=== PATIENT | female | born 1975 | race Caucasian/White ===

== ENCOUNTER → 2025-02-10 | Outpatient (CLI) | payer MEDICARE, SELFPAY ==
[2025-02-10 22:49] LABS: Absolute Lymphocyte Count 1.44 X10^3/uL (0.83-4.51); Absolute Neutrophil Count 3.5 X10^3/uL (2.0-7.7); Basophil# 0.05 X10^3/uL; Basophil% 0.9 % (0-1); Eosinophil# 0.12 X10^3/uL; Eosinophils% 2.2 % (0-5); Hematocrit 37.7 % (37-47); Hemoglobin 12.6 g/dL (12.0-15.0); Lymphocyte # 1.44 X10^3/ul (0.83-4.51); Lymphocyte % 26.3 % (19-41); Mean Corp Hgb Conc 33.4 g/dL (32-36); Mean Corpuscular Hgb 31.7 pg (27.0-32.0); Mean Corpuscular Volume 94.7 fL (81-99); Mean Platelet Vol. 10.7 fl (6.2-12.0); Monocyte# 0.36 X10^3/uL; Monocyte% 6.6 % (0-10); NRBC Flagged by Analyzer 0 % (0-5); Neutrophil # 3.49 X10^3/uL (2.7-7.7); Neutrophil % 63.8 % (47-70); Platelet Count 261 K/mm3 (150-450); RBC Distribution Width SD 45.5 fl (35.1-43.9); Red Blood Count 3.98 M/mm3 (4.2-5.4); White Blood Count 5.5 K/mm3 (4.4-11.0)
[2025-02-10 23:15] LABS: ALB/GLOB Ratio 2.1 RATIO (0.9-2.4); AST(SGOT) 23 U/L (<=31); Alanine Aminotransfer ALT/SGPT 14 U/L (<=34); Albumin, Serum 4.6 g/dL (3.5-5.0); Alkaline Phosphatase 67 U/L (35-104); Anion Gap 10 (5-15); BUN 11 mg/dL (4-19); BUN/Creat Ratio 10.9 RATIO (10-20); Calcium,Total 9.6 mg/dL (7.6-11.0); Carbon Dioxide 25.8 mmol/L (21.0-32.0); Chloride 103 mmol/L (98-108); Cholesterol 301 mg/dL (<=200); Creatinine, Serum 0.99 mg/dL (0.70-1.20); EST Glomerular Filtration Rate 69 (>60); Globulin 2.2 g/dL (2.2-4.2); Glucose 82 mg/dL (70-99); High Density Lipoprotein 101 mg/dL; Low Density Lipoprotein Calc. 190 mg/dL; Potassium 3.7 mmol/L (3.3-5.1); Protein, Total 6.8 g/dL (5.9-8.4); Sodium Level 139 mmol/L (133-145); Triglycerides 51 mg/dL; Very Low Density Lipoprotein 10 mg/dL (5-40); cholesterol:hdl ratio screen 2.98
[2025-02-11 01:11] LABS: Vitamin B12 698 pg/mL (180-914)
== END | disposition home or self-care (01) ==
PROVIDERS: Referring Provider Nurse Practitioner; Visit Provider Nurse Practitioner
DX: Z00.00 Encounter for general adult medical examination without abnormal findings (principal); K65.8 Other peritonitis; D64.9 Anemia, unspecified; E78.00 Pure hypercholesterolemia, unspecified
CPT/HCPCS: 80053; 80061; 82607; 82652; 84443; 85025

== ENCOUNTER → 2025-04-30 | Outpatient (CLI) | payer MEDICARE, SELFPAY ==
--- OUTSIDE RECORDS SUMMARY | 2025-04-30 23:12 | XMS RPT_ITS | CCD ---
Author Organization [facility] Care Team Providers Care Spraying Machine Operator Name Role Phone HAYDEN BISHOP (DO) Unavailable UnavaRIGO Ibrahim (OD) Unavailable UnavailMargaret Estrella Unavailable Unavailable Unavailable Layo PRODUCT SUPPORT MANAGER-C, Christopher Attending Provider Layo PRODUCT SUPPORT MANAGER-C, Christopher Referring Provider Christopher Bustos NP Referring Unavailable Christopher Bustos NP Attending Unavailable Delmy Josue MD Primary Care Provider DELMY JOSUE Referring Unavailable DELMY JOSUE Primary Care Unavailable CHRISTOPHER BUSTOS Primary Care Unavailable Medications Current Medications Medication Drug Class(es) Dates Sig (Normalized) Sig (Original) amphetamine aspartate 5 mg / amphetamine sulfate 5 mg / dextroamphetamine saccharate 5 mg / dextroamphetamine sulfate 5 mg oral tablet (1 source) Central Nervous System Stimulant take 1 tablet by mouth once daily dextroamphetamine-a mphetamine (ADDERALL) 20 mg tablet Take 20 mg by mouth once daily. Active CA CARB & GLUC/MAG OX & GLUC (CALCIUM MAGNESIUM ORAL) (1 source) take 1400 mg by mouth once daily CA CARB & GLUC/MAG OX & GLUC (CALCIUM MAGNESIUM ORAL) Take 1,400 mg by mouth once daily. Active calcium ascorbate 500 mg oral tablet (2 sources) Start: take 1 tablet by mouth twice daily Ascorbate Calcium (Vitamin C) 500 mg tablet Active 500 mg PO TWICE A DAY February 11, 2025 12:00am CHLOREL/CHLOROPH/D3/B2 /FA/IRON (CHLORELLA CAPS ORAL) (1 source) take 1 capsule by mouth once daily CHLOREL/CHLOROPH/D3 /B2/FA/IRON (CHLORELLA CAPS ORAL) Take 3,000 Units by mouth once daily. Active cholecalciferol 0.125 mg oral capsule (2 sources) Vitamin D Start: 5 take 1 capsule by mouth once daily Cholecalciferol (Vitamin D3) 125 mcg (5,000 unit) capsule Active 125 ug PO daily February 11, 2025 12:00am dexamethasone 6 mg oral tablet (1 source) Corticosteroid Start: End: 1 take 1 tablet by mouth once daily Dexamethasone 6 MG Oral Tablet TAKE 1 TABLET DAILY. Quantity: 10 Refills: 0 Ordered: 02-Jun-2021 Mario Quintanilla DO Start : 02-Jun-2021 End : 12-Jun-2021 Active doxycycline hyclate 100 mg oral capsule (1 source) Tetracycline-class Drug Start: End: 1 take 1 capsule by mouth twice daily Doxycycline Hyclate 100 MG Oral Capsule TAKE 1 CAPSULE TWICE DAILY UNTIL GONE. Quantity: 10 Refills: 0 Ordered: 02-Jun-2021 Mario Quintanilla DO Start : 02-Jun-2021 End : 07-Jun-2021 Active DULoxetine 60 mg delayed release oral capsule (1 source) Serotonin and Norepinephrine Reuptake Inhibitor take 1 capsule by mouth once daily DULoxetine (CYMBALTA) 60 mg capsule Take 60 mg by mouth once daily. Active ERGOCALCIFEROL, VITAMIN D2, (VITAMIN D2 ORAL) (1 source) take 2000 [IU] by mouth once daily ERGOCALCIFEROL, VITAMIN D2, (VITAMIN D2 ORAL) Take 2,000 Units by mouth once daily. Active gabapentin 300 mg oral capsule (3 sources) Anti-epileptic Agent Start: 5 take 1 capsule by mouth at bedtime Gabapentin 300 mg capsule Active 300 mg PO AT BEDTIME February 11, 2025 12:00am take 1-2 capsules by mouth once daily at bedtime gabapentin (NEURONTIN) 100 mg capsule Ta ke 100 mg by mouth daily at bedtime. Take 1-2 capsules by mouth at bedtime Active INTERFERON BETA-1B (BETASERON SUBCUTANEOUS) (1 source) inject 0.3 mg by subcutaneous injection every other day INTERFERON BETA-1B (BETASERON SUBCUTANEOUS) Inject 0.3 mg subcutaneously every other day. Active levothyroxine sodium 0.088 mg oral tablet (3 sources) l-Thyroxi ne Start: take 1 tablet by mouth once daily Levothyroxine (Levoxyl) 88 mcg tablet Active 88 ug PO daily March 31, 2025 12:00am Start: 08-01-2019 take 1 tablet by sruthi th once daily Levothyroxine Sodium 50 MCG Oral Tablet TAKE 1 TABLET DAILY. Quantity: 30 Refills: 1 Ordered: 01-Aug-2019 Enzo Choi MD Start : 01-Aug-2019 Active Magnesium (2 sources) Start: 02-11-2025 take 1 tablet by mouth once daily Magnesium 250 mg tablet Active 250 mg PO daily February 11, 2025 12:00am mecobalamin 1 mg sublingual tablet (2 sources) Start: 02-11-2025 Mecobalamin (Vitamin B12) 1,000 mcg tablet,disintegrating Active 1000 ug SL daily February 11, 2025 12:00am place tablet under tongue and allow to dissolve for at least30 secs before swallowing 24 hr methylphenidate hydrochloride 54 mg extended release oral tablet (2 sources) Central Nervous System Stimulant Start: 02-11-2025 take 1 tablet by mouth once daily in the morning, then take 1 tablet by mouth every twenty-four hours Methylphenidate Hcl (Concerta) 54 mg tablet extended release 24hr Active 54 mg PO EVERY MORNING February 11, 2025 12:00am Ocrelizumab-Hyaluroni dase-Ocsq (2 sources) Start: 02-11-2025 Ocrelizumab-Hyaluroni dase-Ocsq (Ocrevus Zunovo) 920 mg-23,000 unit/23 mL solution Active 23 mL SC every 6 months February 11, 2025 12:00am On Hold: None into the abdomen over approximately 10 minutes Start: 02-11-2025 Ocrelizumab-Hy aluronidase-Ocsq (Ocrevus Zunovo) 920 mg-23,000 unit/23 mL solution Active 23 mL SC every 6 months February 11, 2025 12:00am into the abdomen over approximately 10 minutes Turmeric extract (1 source) take 2 capsules by mouth once daily TURMERIC (CURCUMIN MISC) Take 625 mg by mouth once daily. Take 2 capsules by mouth once daily Active zinc acetate 50 mg oral capsule (2 sources) Start: 02-11-2025 take 1 capsule by mouth once daily Zinc Acetate (Galzin) 50 mg (zinc) capsule Active 50 mg PO daily February 11, 2025 12:00am Completed/Discontinued Medications Medication Drug Class(es) Dates Sig (Normalized) Sig (Original) [id number] actuat albuterol 0.09 mg/actuat metered dose inhaler (1 source) beta2-Adrenergic Agonist Start: 06-02-2021 Albuterol Sulfate HFA 108 (90 Base) MCG/ACT Inhalation Aerosol Solution 2 puffs via spacer device every 4-6 hours as needed. Please use spacer device. 1 puff take 5-6 easy breaths. Rest 1 minute repeat. Quantity: 1 Refills: 1 Ordered: 02-Jun-2021 Mario Quintanilla DO Start : 02-Jun-2021 Active Spacer for Metered Dose Inhaler (1 source) Start: 06-02-2021 Spacer for Metered Dose Inhaler Please dispense spacer device with MDI. Please instruct patient in use of MDI with spacer device Quantity: 1 Refills: 0 Ordered: 02-Jun-2021 Mario Quintanilla DO Start : 02-Jun-2021 Active Problems Problem Classification Problem Date Documented Date Episodic/Chronic Asthma (1 source) Exacerbation of asthma; Translations: [Asthma, unspecified type, with (acute) exacerbation] Chronic Deficiency and other anemia (2 sources) Anemia; Translations: [Anemia, unspecified] 02-10-2025 Episodic Disorders of lipid metabolism (2 sources) Hypercholesterolemia; Translations: [Pure hypercholesterolemia, unspecified] 02-10-2025 Chronic Headache; including migraine (1 source) Headache; Translations: [Headache] Episodic Immunizations and screening for infectious disease (1 source) Suspected disease caused by 2019-nCoV; Translations: [Contact with or exposure to other viral diseases] Episodic Multiple sclerosis (4 sources) Multiple sclerosis; Translations: [Multiple sclerosis] Onset: 12-01-2011 02-11-2025 Chronic Other lower respiratory disease (2 sources) Cough; Translations: [Cough] Episodic Other upper respiratory disease (1 source) Nasal congestion; Translations: [Other disease of nasal cavity and sinuses] Episodic Thyroid disorders (3 sources) 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 Routine follow-up TECHNIQUE: Brain MRI with demyelinating disease protocol with and without IV gadolinium. MQ: [id number] Contrast: 15ml mL Dotarem IV COMPARISON: MRI performed 11/19/2011 . Outside report dated 09/11/2018 RESULT: MR BRAIN: Parenchymal Findings: There are multiple foci of hyperintensity on FLAIR and T2 within the white matter, compatible with the clinical diagnosis of multiple sclerosis. Fairly extensive white matter changes involving both cerebral hemispheres, involving juxtacortical, right ventricular and deep white matter both hemispheres as well as the posterior fossa are present. There is no definite enhancement. A small focus of questionable enhancement in the right tate radiata (7:17) does not appear to correlate with a white matter lesion and is likely artifactual. New T2 Lesions: Greater than three. Site(s) of New/Larger T2 Lesion(s): When compared with the study performed 11/19/2011, there are extensive new areas of FLAIR signal change involving both hemispheres. Interval Improvement: A focal area of increased FLAIR signal in the right lateral cerebellar hemisphere appears improved compared with the previous study New Enhancing Lesions: None T2 [place] of Disease: Moderate. Parenchymal Volume Loss: Moderate. Other Significant Findings: None. *Note:? The definition of new T2 Lesions includes both new and enlarging plaques on T2-weighted FLAIR images (new lesions greater than or equal to 5mm3 or an increase in diameter of an existing lesion by greater than or equal to 2mm). IMPRESSION: 1. Multiple intracranial white matter lesions compatible with multiple sclerosis. Greater than three new T2 lesions and no new enhancing lesions. Moderate parenchymal volume loss. Note that the comparison is made to the most recent study available, which is dated 11/19/2011. The patient has had multiple MRIs in the interval from the study, and if those are made available, an addendum can be made to this report with a direct comparison. * * * * * * * * ADDENDUM #1 * * * * * * * * A previous comparison MRI performed 07/16/2016 has been uploaded. Compared with that study, there is significant progression of white matter changes, with more confluent FLAIR signal change around the trigones of both lateral ventricles, and more extensive white matter change in both cerebral hemispheres, with some volume loss. Farm Management Teacher: PSCB Transcribe Date/Time: Mar 24 2025 2:06P Dictated by : LAKEISHA ATKINSON MD This examination was interpreted and the report reviewed and electronically signed by: LAKEISHA ATKINSON MD on Mar 10 2025 2:39PM EST This document has been addended by: LAKEISHA ATKINSON MD on Mar 24 2025 2:09PM EST [id number] Normal [facility] Vitamin D 1,25-Dihydroxyon 0 02-14-2025 VIT D 1,25 DIHY 70.6 pg/mL Normal 24.8-81.5 [facility] Comment on above: Result Comment: Perf ormed at: - [facility] [id number] Tablet Coater: Jermaine Hwang MD, Phone: [phone] Performed By: #### L 3300.0960, L503.0106, L500.4050, L100.0100, L501.9520, L500.4100 #### [facility] [address] [facility] [place], [address] Thyroid Stim Hormone (TSH)on 02-11-2025 TSH 166.000 uIU/mL High 0.300-4.200 [facility] Comment on above: Performed By: #### L 3300.0960, L503.0106, L500.4050, L100.0100, L501.9520, L500.4100 #### [facility] [address] [place], [address] Vitamin B12on 02-11-2025 Cobalamin (Vitamin B12) [Mass/Vol] 698 pg/mL Normal 180-914 [facility] Comment on above: Performed By: #### L 3300.0960, L503.0106, L500.4050, L100.0100, L501.9520, L500.4100 #### [facility] [address] [place], [address] Absolute lymphocyte countOrd ered By: Christopher Bustos on 02-10-2025 Lymphocytes Auto (Unsp spec) [#/Vol] 1.44 10*3/uL 0.83-4.51 [facility] Absolute neutrophil countOrd ered By: Christopher Bustos on 02-10-2025 Neutrophils (Bld) [#/Vol] 3.5 10*3/uL 2.0-7.7 [facility] Anion gap in Serum or Plasma Ordered By: Christopher Bustos on 02-10-2025 Anion gap [Moles/Vol] 10 mmol/L 5-15 [facility] Automated lymphocyte count a s percentage of total leukocytesOrdered By: Christopher Bustos on 02-10-2025 Lymphocytes/100 WBC Auto (Unsp spec) 26.3 % 19-41 [facility] BUN/creatinine ratioOrdered By: Christopher Bustos on 02-10-2025 Urea nitrogen/Creatinine [Mass ratio] 10.9 mg/mg 10-20 [facility] Basophil percentageOrdered B y: Christopher Bustos on 02-10-2025 Basophils/100 WBC (Bld) 0.9 % 0-1 [facility] Bilirubin, totalOrdered By: Christophre Bustos on 02-10-2025 Bilirubin [Mass/Vol] 0.30 mg/dL 0.00-1.30 [facility] CBC W/Diff, Automatedon Absolute Lymph 1.44 X10 3/uL Normal 0.83-4.51 [facility] Comment on above: Performed By: #### L 3300.0960, L503.0106, L500.4050, L100.0100, L501.9520, L500.4100 #### [facility] [address] [place], [address] Absolute Neut 3.5 X10 3/uL Normal 2.0-7.7 [facility] Comment on above: Performed By: #### L 3300.0960, L503.0106, L500.4050, L100.0100, L501.9520, L500.4100 #### [facility] [address] [place], [address] Basophils/100 WBC (Bld) 0.9 % Normal 0-1 [facility] Comment on above: Performed By: #### L 3300.0960, L503.0106, L500.4050, L100.0100, L501.9520, L500.4100 #### [facility] [address] [place], [address] Eosinophils/100 WBC (Bld) 2.2 % Normal 0-5 [facility] Comment on above: Performed By: #### L 3300.0960, L503.0106, L500.4050, L100.0100, L501.9520, L500.4100 #### [facility] [address] [place], [address] Erythrocyte distribution width (RBC) [Ratio] 13.0 % Normal 11.6-14.6 [facility] Comment on above: Performed By: #### L 3300.0960, L503.0106, L500.4050, L100.0100, L501.9520, L500.4100 #### [facility] [address] [place], [address] Hematocrit (Bld) [Volume fraction] 37.7 % Normal 37-47 [facility] Comment on above: Performed By: #### L 3300.0960, L503.0106, L500.4050, L100.0100, L501.9520, L500.4100 #### [facility] [address] [place], [address] Hemoglobin (Bld) [Mass/Vol] 12.6 g/dL Normal 12.0-15.0 [facility] Comment on above: Performed By: #### L 3300.0960, L503.0106, L500.4050, L100.0100, L501.9520, L500.4100 #### [facility] [address] [place], [address] IG% 0.200 Normal 0.0-0.9 [facility] Comment on above: Result Comment: IG% - Immature Granulocytes (promyelocytes, myelocytes and metamyelocytes) > 1% indicates that a LEFT SHIFT is Present. Performed By: #### L 3300.0960, L503.0106, L500.4050, L100.0100, L501.9520, L500.4100 #### [facility] [address] [place], [address] Lymphocytes/100 WBC (Bld) 26.3 % Normal 19-41 [facility] Comment on above: Performed By: #### L 3300.0960, L503.0106, L500.4050, L100.0100, L501.9520, L500.4100 #### [facility] [address] [place], [address] MCH (RBC) [Entitic mass] 31.7 pg Normal 27.0-32.0 [facility] Comment on above: Performed By: #### L 3300.0960, L503.0106, L500.4050, L100.0100, L501.9520, L500.4100 #### [facility] [address] [place], [address] MCHC (RBC) [Mass/Vol] 33.4 g/dL Normal 32-36 [facility] Comment on above: Performed By: #### L 3300.0960, L503.0106, L500.4050, L100.0100, L501.9520, L500.4100 #### [facility] [address] [place], [address] MCV (RBC) [Entitic vol] 94.7 fL Normal 81-99 [facility] Comment on above: Performed By: #### L 3300.0960, L503.0106, L500.4050, L100.0100, L501.9520, L500.4100 #### [facility] [address] [place], [address] Monocytes/100 WBC (Bld) 6.6 % Normal 0-10 [facility] Comment on above: Performed By: #### L 3300.0960, L503.0106, L500.4050, L100.0100, L501.9520, L500.4100 #### [facility] [address] [place], [address] Neutrophils/100 WBC (Bld) 63.8 % Normal 47-70 [facility] Comment on above: Performed By: #### L 3300.0960, L503.0106, L500.4050, L100.0100, L501.9520, L500.4100 #### [facility] [address] [place], [address] Nucleated RBC (Bld) [#/Vol] 0 10*3/uL Normal 0-5 [facility] Comment on above: Performed By: #### L 3300.0960, L503.0106, L500.4050, L100.0100, L501.9520, L500.4100 #### [facility] [address] [place], [address] Platelet mean volume (Bld) [Entitic vol] 10.7 fL Normal 6.2-12.0 [facility] Comment on above: Performed By: #### L 3300.0960, L503.0106, L500.4050, L100.0100, L501.9520, L500.4100 #### [facility] [address] [place], [address] Platelets (Bld) [#/Vol] 261 10*3/uL Normal 150-450 [facility] Comment on above: Performed By: #### L 3300.0960, L503.0106, L500.4050, L100.0100, L501.9520, L500.4100 #### [facility] [address] [place], [address] RBC (Bld) [#/Vol] 3.98 10*6/uL Low 4.2-5.4 [facility] Comment on above: Performed By: #### L 3300.0960, L503.0106, L500.4050, L100.0100, L501.9520, L500.4100 #### [facility] [address] [place], [address] RDW SD 45.5 fl High 35.1-43.9 [facility] Comment on above: Performed By: #### L 3300.0960, L503.0106, L500.4050, L100.0100, L501.9520, L500.4100 #### [facility] [address] [place], [address] WBC (Bld) [#/Vol] 5.5 10*3/uL Normal 4.4-11.0 [facility] Comment on above: Performed By: #### L 3300.0960, L503.0106, L500.4050, L100.0100, L501.9520, L500.4100 #### [facility] [address] [place], [address] Calculated very low density lipoprotein (VLDL) cholesterol measurementOrdered By: Christopher Bustos on 02-10-2025 Calculated very low density lipoprotein (VLDL) cholesterol measurement 10 mg/dL 5-40 [facility] Carbon dioxide, total [Moles /volume] in Central venous bloodOrdered By: Christopher Bustos on 02-10-2025 CO2 [Moles/Vol] 25.8 mmol/L 21.0-32.0 [facility] Chloride assayOrdered By: Do ra Bustos on 02-10-2025 Chloride [Moles/Vol] 103 mmol/L 98-108 [facility] Comprehensive Metabolic Prof ilon 02-10-2025 Albumin [Mass/Vol] 4.6 g/dL Normal 3.5-5.0 [facility] Comment on above: Performed By: #### L 3300.0960, L503.0106, L500.4050, L100.0100, L501.9520, L500.4100 #### [facility] [address] [place], [address] Albumin/Globulin [Mass ratio] 2.1 {ratio} Normal 0.9-2.4 [facility] Comment on above: Performed By: #### L 3300.0960, L503.0106, L500.4050, L100.0100, L501.9520, L500.4100 #### [facility] [address] [place], [address] ALK PHOS 67 U/L Normal 35-104 [facility] Comment on above: Performed By: #### L 3300.0960, L503.0106, L500.4050, L100.0100, L501.9520, L500.4100 #### [facility] [address] [place], [address] ALT [Catalytic activity/Vol] 14 U/L Normal <=34 [facility] Comment on above: Performed By: #### L 3300.0960, L503.0106, L500.4050, L100.0100, L501.9520, L500.4100 #### [facility] [address] [place], [address] AST [Catalytic activity/Vol] 23 U/L Normal <=31 [facility] Comment on above: Performed By: #### L 3300.0960, L503.0106, L500.4050, L100.0100, L501.9520, L500.4100 #### [facility] [address] [place], [address] Bilirubin [Mass/Vol] 0.30 mg/dL Normal 0.00-1.30 [facility] Comment on above: Performed By: #### L 3300.0960, L503.0106, L500.4050, L100.0100, L501.9520, L500.4100 #### [facility] [address] [place], [address] BUN/CRE 10.9 RATIO Normal 10-20 [facility] Comment on above: Performed By: #### L 3300.0960, L503.0106, L500.4050, L100.0100, L501.9520, L500.4100 #### [facility] [address] [place], [address] Calcium [Mass/Vol] 9.6 mg/dL Normal 7.6-11.0 [facility] Comment on above: Performed By: #### L 3300.0960, L503.0106, L500.4050, L100.0100, L501.9520, L500.4100 #### [facility] [address] [place], [address] Chloride [Moles/Vol] 103 mmol/L Normal 98-108 [facility] Comment on above: Performed By: #### L 3300.0960, L503.0106, L500.4050, L100.0100, L501.9520, L500.4100 #### [facility] [address] [place], [address] CO2 [Moles/Vol] 25.8 mmol/L Normal 21.0-32.0 [facility] Comment on above: Performed By: #### L 3300.0960, L503.0106, L500.4050, L100.0100, L501.9520, L500.4100 #### [facility] [address] [place], [address] Creatinine [Mass/Vol] 0.99 mg/dL Normal 0.70-1.20 [facility] Comment on above: Performed By: #### L 3300.0960, L503.0106, L500.4050, L100.0100, L501.9520, L500.4100 #### [facility] [address] [place], [address] GAP 10 Normal 5-15 [facility] Comment on above: Performed By: #### L 3300.0960, L503.0106, L500.4050, L100.0100, L501.9520, L500.4100 #### [facility] [address] [place], [address] GFR/1.73 sq M.predicted among non-blacks MDRD (S/P/Bld) [Vol rate/Area] 69 mL/min/{1.73_m2} Normal >60 [facility] Comment on above: Result Comment: mL/m in/1.73m2 CKD-EPI Creatinine Equation (2020) Performed By: #### L 3300.0960, L503.0106, L500.4050, L100.0100, L501.9520, L500.4100 #### [facility] [address] [place], [address] Globulin (S) [Mass/Vol] 2.2 g/dL Normal 2.2-4.2 [facility] Comment on above: Performed By: #### L 3300.0960, L503.0106, L500.4050, L100.0100, L501.9520, L500.4100 #### [facility] [address] [place], [address] Glucose [Mass/Vol] 82 mg/dL Normal 70-99 [facility] Comment on above: Performed By: #### L 3300.0960, L503.0106, L500.4050, L100.0100, L501.9520, L500.4100 #### [facility] [address] [place], [address] Potassium [Moles/Vol] 3.7 mmol/L Normal 3.3-5.1 [facility] Comment on above: Performed By: #### L 3300.0960, L503.0106, L500.4050, L100.0100, L501.9520, L500.4100 #### [facility] [address] [place], [address] Sodium [Moles/Vol] 139 mmol/L Normal 133-145 [facility] Comment on above: Performed By: #### L 3300.0960, L503.0106, L500.4050, L100.0100, L501.9520, L500.4100 #### [facility] [address] [place], [address] T PROT 6.8 g/dL Normal 5.9-8.4 [facility] Comment on above: Performed By: #### L 3300.0960, L503.0106, L500.4050, L100.0100, L501.9520, L500.4100 #### [facility] [address] [place], [address] Urea nitrogen [Mass/Vol] 11 mg/dL Normal 4-19 [facility] Comment on above: Performed By: #### L 3300.0960, L503.0106, L500.4050, L100.0100, L501.9520, L500.4100 #### [facility] [address] [place], [place], [id number] Eosinophil percentageOrdered By: Christopher Bustos on 02-10-2025 Eosinophils/100 WBC (Bld) 2.2 % 0-5 [facility] Erythrocyte distribution wid th ratioOrdered By: Christopher Bustos on 02-10-2025 Erythrocyte distribution width (RBC) [Ratio] 13.0 % 11.6-14.6 [facility] Erythrocyte distribution wid th standard deviationOrdered By: Christopher Bustos on 02-10-2025 Erythrocyte distribution width (RBC) [Ratio] 45.5 fl High 35.1-43.9 [facility] Glomerular filtration rate ( GFR) estimation/1.73 sq m using serum, plasma, or whole bOrdered By: Christopher Bustos on 02-10-2025 GFR/1.73 sq M.predicted among non-blacks MDRD (S/P/Bld) [Vol rate/Area] 69 mL/min/{1.73_m2} >60 [facility] Comment on above: mL/min/1.73m2 CKD-EP I Creatinine Equation (2020) Hematocrit Auto (Bld) [Volum e fraction]Ordered By: Christopher Bustos on 02-10-2025 Hematocrit (Bld) [Volume fraction] 37.7 % 37-47 [facility] Hemoglobin measurementOrdere d By: Christopher Bustos on 02-10-2025 Hemoglobin (Bld) [Mass/Vol] 12.6 g/dL 12.0-15.0 [facility] Immature granulocytes/100 WB C Auto (Bld)Ordered By: Christopher Bustos on 02-10-2025 Immature granulocytes/100 WBC (Bld) 0.200 % 0.0-0.9 [facility] Comment on above: IG% - Immature Granu locytes (promyelocytes, myelocytes and metamyelocytes) > 1% indicates that a LEFT SHIFT is Present. LDL calc ser/plasOrdered By: Christopher Bustos on 02-10-2025 Cholesterol in LDL [Mass/Vol] 190 mg/dL [facility] Comment on above: Fqfkxpubit=349-623 m g/dL & Higher Pyoy=067 mg/dL or greater Laboratory - Chemistry and C hemistry - challengeOrdered By: Christopher Bustos on 02-10-2025 AST [Catalytic activity/Vol] 23 U/L <32 [facility] Lipid Profileon 02-10-2025 CHOL:HDL 2.98 Normal [facility] Comment on above: Performed By: #### L 3300.0960, L503.0106, L500.4050, L100.0100, L501.9520, L500.4100 #### [facility] [address] [place], [address] Cholesterol [Mass/Vol] 301 mg/dL High <=[address] [facility] Comment on above: Result Comment: Chol esterol level, Desirable <200 mg/dL Borderline high cholesterol 200-239 mg/dL High cholesterol >=240 mg/dL Recommendations of the NCEP Adult Treatment Panel for the following risk-cutoff thresholds for the [place] population. Performed By: #### L 3300.0960, L503.0106, L500.4050, L100.0100, L501.9520, L500.4100 #### [facility] [address] [place], [address] Cholesterol in HDL [Mass/Vol] 101 mg/dL Normal [facility] Comment on above: Result Comment: Maritza onal Cholesterol Education Program (NCEP) guidelines: <40 mg/dL: Low HDL-cholesterol (major risk factor for CHD) >= 60 mg/dL: High HDL-cholesterol (negative risk factor for CHD) HDL-cholesterol is affected by a number of factors, e.g. smoking, exercise, hormones, sex and age. Performed By: #### L 3300.0960, L503.0106, L500.4050, L100.0100, L501.9520, L500.4100 #### [facility] [address] [place], [address] Cholesterol in LDL [Mass/Vol] 190 mg/dL Normal [facility] Comment on above: Result Comment: Bord ttpflx=957-399 mg/dL Higher Urst=632 mg/dL or greater Performed By: #### L 3300.0960, L503.0106, L500.4050, L100.0100, L501.9520, L500.4100 #### [facility] [address] [place], [address] Cholesterol in VLDL [Mass/Vol] 10 mg/dL Normal 5-40 [facility] Comment on above: Performed By: #### L 3300.0960, L503.0106, L500.4050, L100.0100, L501.9520, L500.4100 #### [facility] [address] [place], [address] Triglyceride [Mass/Vol] 51 mg/dL Normal [facility] Comment on above: Result Comment: The drugs N-Acetylcysteine and Metamizole may falsely depress this assay. Normal range: <150 mg/dL Borderline High: 150-199 mg/dL High: 200-499 mg/dL Very High: >500 mg/dL Performed By: #### L 3300.0960, L503.0106, L500.4050, L100.0100, L501.9520, L500.4100 #### [facility] [address] [place], [address] MCV (mean corpuscular volume ) determinationOrdered By: Christopher Bustos on 02-10-2025 MCV (RBC) [Entitic vol] 94.7 fL 81-99 [facility] Mean corpuscular hemoglobin (MCH) determinationOrdered By: Christopher Bustos on 02-10-2025 MCH (RBC) [Entitic mass] 31.7 pg 27.0-32.0 [facility] Mean corpuscular hemoglobin concentration (MCHC) determinationOrdered By: Christopher Bustos on 02-10-2025 MCHC (RBC) [Mass/Vol] 33.4 g/dL 32-36 [facility] Mean platelet volume determi nationOrdered By: Christopher Bustos on 02-10-2025 Platelet mean volume (Bld) [Entitic vol] 10.7 fL 6.2-12.0 [facility] Monocyte percentageOrdered B y: Christopher Bustos on 02-10-2025 Monocytes/100 WBC (Bld) 6.6 % 0-10 [facility] Neutrophil percentageOrdered By: Christopher Bustos on 02-10-2025 Neutrophils/100 WBC (Bld) 63.8 % 47-70 [facility] Nucleated red blood cell per centageOrdered By: Christopher Bustos on 02-10-2025 Nucleated RBC/100 WBC (Bld) [Ratio] 0 % 0-5 [facility] Platelet countOrdered By: Do ra Bustos on 02-10-2025 Platelets (Bld) [#/Vol] 261 10*3/uL 150-450 [facility] Potassium measurement (mass/ volume)Ordered By: Christopher Bustos on 02-10-2025 Potassium (Unsp spec) [Mass/Vol] 3.7 mmol/L 3.3-5.1 [facility] RBC Auto (Bld) [#/Vol]Ordere d By: Christopher Bustos on 02-10-2025 RBC (Bld) [#/Vol] 3.98 10*6/uL Low 4.2-5.4 [facility] Screening total cholesterol/ high density lipoprotein (HDL) cholesterol ratioOrdered By: Christopher Busots on 02-10-2025 Cholesterol.total/Chol esterol in HDL [Mass ratio] 2.98 {ratio} [facility] Serum creatinine measurement (mass/volume)Ordered By: Christopher Bustos on 02-10-2025 Creatinine [Mass/Vol] 0.99 mg/dL 0.70-1.20 [facility] Serum globulin measurementOr dered By: Christopher Bustos on 02-10-2025 Globulin (S) [Mass/Vol] 2.2 g/dL 2.2-4.2 [facility] Serum glucose measurement (m ass/volume)Ordered By: Christopher Bustos on 02-10-2025 Glucose [Mass/Vol] 82 mg/dL 70-99 [facility] Serum or plasma alanine farrar otransferase (ALT) measurementOrdered By: Christopher Bustos on 02-10-2025 ALT [Catalytic activity/Vol] 14 U/L <35 [facility] Serum or plasma albumin olena urement (mass/volume)Ordered By: Christopher Bustos on 02-10-2025 Albumin [Mass/Vol] 4.6 g/dL 3.5-5.0 [facility] Serum or plasma albumin/glob ulin mass ratioOrdered By: Christopher Bustos on 02-10-2025 Albumin/Globulin [Mass ratio] 2.1 {ratio} 0.9-2.4 [facility] Serum or plasma alkaline marge sphatase measurementOrdered By: Christopher Bustos on 02-10-2025 ALP [Catalytic activity/Vol] 67 U/L 35-104 [facility] Serum or plasma calcitriol m easurement (mass/volume)Ordered By: Christopher Bustos on 02-10-2025 1,25-dihydroxyvitamin D3 [Mass/Vol] 70.6 pg/mL 24.8-81.5 [facility] Comment on above: Performed at: [address] [id number] Director: Jermaine Hwang MD, Phone: [phone] Serum or plasma calcium olena urement (mass/volume)Ordered By: Christopher Bustos on 02-10-2025 Calcium [Mass/Vol] 9.6 mg/dL 7.6-11.0 [facility] Serum or plasma cholesterol in HDL measurement (mass/volume)Ordered By: Christopher Bustos on 02-10-2025 Cholesterol in HDL [Mass/Vol] 101 mg/dL >40 [facility] Comment on above: National Cholesterol Education Program (NCEP) guidelines:<40 mg/dL: Low HDL-cholesterol (major risk factor for CHD)>= 60 mg/dL: High HDL-cholesterol (negative risk factor for CHD)HDL-cholesterol is affected by a number of factors, e.g. smoking, exercise, hormones, sex and age. Serum or plasma cholesterol measurement (mass/volume)Ordered By: Christopher Bustos on 02-10-2025 Cholesterol [Mass/Vol] 301 mg/dL High <[address] [facility] Comment on above: Cholesterol level, D esirable <200 mg/dLBorderline high cholesterol 200-239 mg/dLHigh cholesterol >=240 mg/dLRecommendations of the NCEP Adult Treatment Panel for the following risk-cutoff thresholds for the [place] population. Serum or plasma urea nitroge n measurement (mass/volume)Ordered By: Christopher Bustos on 02-10-2025 Urea nitrogen [Mass/Vol] 11 mg/dL 4-19 [facility] Sodium levelOrdered By: Christopher Bustos on 02-10-2025 Sodium [Moles/Vol] 139 mmol/L 133-145 [facility] TSH DL <= 0.005 mIU/L QnOrde red By: Christopher Bustos on 02-10-2025 TSH Qn 166.000 uIU/mL High 0.300-4.200 [facility] Total proteinOrdered By: Matt Bustos on 02-10-2025 Protein [Mass/Vol] 6.8 g/dL 5.9-8.4 [facility] Triglycerides measurementOrd ered By: Christopher Bustos on 02-10-2025 Triglyceride [Mass/Vol] 51 mg/dL <199 [facility] Comment on above: The drugs N-Acetylcy steine and Metamizole may falsely depress this assay. Normal range: <150 mg/dLBorderline High: 150-199 mg/dLHigh: 200-499 mg/dLVery High: >500 mg/dL Vitamin B12 ser/plasOrdered By: Christopher Bustos on 02-10-2025 Cobalamin (Vitamin B12) [Mass/Vol] 698 pg/mL 180-914 [facility] White blood cell (WBC) count Ordered By: Christopher Bustos on 02-10-2025 WBC (Bld) [#/Vol] 5.5 10*3/uL 4.4-11.0 [facility] DIGITAL MAMM SCREENING W/ TO Ludwig 01-06-2022 DIGITAL MAMM SCREENING W/ NESTOR Patient Name: MARINA BECKFORD STUDY: DIGITAL MAMM SCREENING W/ NESTOR; 01/06/2022 7:54 am ACCESSION NUMBER(S): [id number] ORDERING CLINICIAN: MARGARET LUCAS INDICATION: Screening. Patient has a family history of breast cancer in her maternal grandmother at age 65. COMPARISON: 12/23/2015 FINDINGS: 2D and tomosynthesis images were reviewed at 1 mm slice thickness. The breast tissue is heterogeneously dense, which may obscure small masses. No suspicious masses or calcifications are identified. IMPRESSION: No mammographic evidence of malignancy. BI-RADS CATEGORY: Category: 1 - Negative. Recommendation: 1 Year Screening. For any future breast imaging appointments, please call [phone] ([phone] Patient letter sent SNORM Electronically signed by: DIANA LYON MD Normal [facility] CORONAVIRUS 2019 BY PCRon SARS-CoV-2 (COVID-19) RNA DI+probe Ql (Unsp spec) Not detected Normal Not Detected [facility] Comment on above: Result Comment: . This assay is designed to detect the N, ORF1ab and/or S genes of SARS-CoV-2 via nucleic acid amplification. A Negative (NOT DETECTED) result does not preclude 2019-nCoV infection since the adequacy of sample collection and/or low viral burden may result in presence of viral nucleic acids below the clinical sensitivity of this test method. Negative (NOT DETECTED) result should not be used as the sole basis for treatment or other patient management decisions. Rather negative results should be combined with clinical observations, patient history, and epidemiological information to make patient management decisions. Fact sheet for providers: https://www.fda.gov/media/365857/download Fact sheet for patients: https://www.fda.gov/media/085996/download This test has received FDA Emergency Use Authorization (EUA) and has been verified by [facility] ([facility]). This test is only authorized for the duration of time that circumstances exist to justify the authorization of the emergency use of in vitro diagnostic tests for the detection of SARS-CoV-2 virus and/or diagnosis of COVID-19 infection under section 564(b)(1) of the Act, 21 U.S.C. 360bbb-3(b)(1), unless the authorization is terminated or revoked sooner. [facility] is certified under CLIA-88 as qualified to perform high complexity testing. Testing is performed in the [facility] laboratories located at [address] [place] [address]. Performed By: #### C OV19 #### [address] [place] [address] DATE OF SYMPTOM ONSET [[id number]]? [id number] Normal [facility] Comment on above: Performed By: #### C OV19 #### [facility] [address] [place] [address] Covid 19 Resultson 1 SARS-CoV-2 (COVID-19) RNA DI+probe Ql (Unsp spec) NEGATIVE COVID-19 Test Coronaviruses are common world-wide and are the cause of many common colds. SARS-COV2 is a new coronavirus that began circulating worldwide in 2019 so we are calling it COVID-19. It has been estimated that four out of five patients with COVID-19 will recover at home without the need for medical attention. Symptoms of COVID-19 may include cough, fever, shortness of breath, loss of taste or smell and other flu-like symptoms including chills, sore muscles, sore throat, and headache. Severe illness is more common in older people and people with other health problems such as high blood pressure, obesity, and immune system problems. If the test is positive, you have COVID-19. You will be contacted by the ordering physicians office and instructed to remain on home isolation, in accordance with CDC guidelines. You may also be contacted by the [facility] to see if any of your close contacts may have been exposed to the virus and need to quarantine. If the test is negative, you likely do not have COVID-19 at this time, but you still may have a different illness that can spread to other people (like Influenza, or the Flu) and could still be at risk for getting COVID-19. We recommend that you stay away from other people to limit the spread of illness until your symptoms are improving and you are fever-free for 24 hours without the use of fever lowering medications such as acetaminophen or ibuprofen. No test is 100% accurate so if you are still concerned you may have COVID-19, talk to your doctor about the need to continue to stay away from others. Medicines Unless your provider told you not to use the following: Acetaminophen (Tylenol and others) is generally safe. Anti-inflammatory medications, such as Ibuprofen (Advil or Motrin) or Naproxen (Aleve) can also be used. Sqbj-fyb-sqyhoeo cough and cold medicines can be used according to the instructions on the package. Some zjkl-fvh-[id number] medicines also contain acetaminophen. Make sure you are not taking more than your recommended dose. For those not hospitalized, there is no specific treatment available for this illness. Antibiotics do not treat Coronaviruses. Follow-Up Follow up with your doctor by scheduling a virtual visit or consider follow-up at one of our urgent care fever clinics. If you are having difficulty breathing, or are very weak and having difficulty standing, this is a medical emergency. Call 911 or have someone take you to the nearest emergency room immediately. If possible, wear a facemask. Additional guidance from the CDC for patients who tested POSITIVE for COVID-19 How to isolate: Isolate yourself in a specific room at home and limit your contact with others. Use a separate bathroom from other members of the household, when possible. Leave home only to get essential medical care. Do not go to work, school or public areas. Avoid using public transportation, ride-sharing, or taxis. Restrict contact with pets and other animals. If you must care for your pet or be around animals while you are sick, wash your hands before and after your interaction and wear a facemask. Make sure that shared spaces in the home have good airflow, such as by an air conditioner or an opened window, weather permitting. Personal Hygiene Procedures: Wear a face mask when in the same room as other people or pets. If a face mask interferes with your breathing, others should wear a mask when sharing space with you. Frequent hand-washing: wash your hands with soap and water for at least 20 seconds. If soap and water are not available, use alcohol-based hand preschool aide. Avoid touching your eyes, nose, and mouth with unwashed hands. Household Hygiene Procedures: Avoid sharing personal household items such as dishes, glassware, cups, eating utensils, towels or bedding with other people or pets in your home. After use, these items should be washed with soap and hot water. Disinfect all high-touch surfaces every day with antibacterial cleaning solutions such as Lysol wipes, bleach, cleansers, etc. High-touch surfaces include tabletops, doorknobs, bathroom fixtures, toilets, phones, keyboards, tablets and bedside tables. Immediately clean any surfaces that may have blood, poop or body fluids on them, using antibacterial cleaning solutions such as Lysol wipes, bleach, cleansers, etc. If clothing or bedding come into contact with blood, poop or body fluids, they should be washed immediately. Follow the directions on the laundry detergent and clothing labels but hot water is recommended when possible. Stopping home isolation precautions: If possible, consult your doctor before stopping home isolation precautions. According to the CDC, you can discontinue home isolation precautions when you have met both of these criteria: Your fever and respiratory symptoms have been gone for 24 ida (more content not included)... Normal [facility] CORONAVIRUS 2019 BY PCRon Lab Specimen Source Nasal, Nasopharyngeal Normal [facility] Comment on above: Performed By: #### C OV19 #### [facility] [address] [address] Coronavirus 2019 RNA by PCR, Symptomaticon 06-02-2021 Date and time of symptom onset [id number] [facility] Work Phone: Coronavirus 2019 RNA by PCR, Symptomatic Not detected Normal See [facility] Work Phone: Comment on above: SOURCE: Nasal, Nasop haryngealReference Range: Not Detected.This assay is designed to detect the N, ORF1ab and/or S genes of SARS-CoV-2 via nucleic acid amplification. A Negative (NOT DETECTED) result does not preclude 2019-nCoV infection since the adequacy of sample collection and/or low viral burden may result in presence of viral nucleic acids below the clinical sensitivity of this test method. Negative (NOT DETECTED) result should not be used as the sole basis for treatment or other patient management decisions. Rather negative results should be combined with clinical observations, patient history, and epidemiological information to make patient management decisions.Fact sheet for providers: https://www.fda.gov/media/189832/downloadFact sheet for patients: https://www.fda.gov/media/375564/downloadThis test has received FDA Emergency Use Authorization (EUA) and has been verified by [facility] ([facility]). This test is only authorized for the duration of time that circumstances exist to justify the authorization of the emergency use of in vitro diagnostic tests for the detection of SARS-CoV-2 virus and/or diagnosis of COVID-19 infection under section 564(b)(1) of the Act, 21 U.S.C. 360bbb-3(b)(1), unless the authorization is terminated or revoked sooner. [facility] is certified under CLIA-88 as qualified to perform high complexity testing. Testing is performed in the [facility] laboratories located at [address] [place] [address]. Office Visit (Urgent Care)on 06-02-2021 Follow-up visit Diagnoses/Problems Assessed Cough (786.2) (R05) Headache (784.0) (R51.9) Nasal congestion with rhinorrhea (478.19) (R09.81,J34.89) Cough (786.2) (R05) Suspected COVID-19 virus infection (V01.79) (Z20.822) Exacerbation of asthma (493.92) (J45.901) Orders Cough Coronavirus 2019 RNA by PCR, Symptomatic; Status:In Progress - Specimen/Data Collected,Retrospective Authorization; Done: [id number] Perform:Lab Services - Lab To Draw (Non-Blood Test); Due:31Aug2021; Last Updated By:Shira Morgan; 06/02/2021 11:58:04 AM;Ordered; For:Cough; Ordered By:Mario Quintanilla; ? : No RESIDENT IN CONGREGATE CARE SETTING? : No ICU? : No HOSPITALIZED (OR PLANNED TO BE ADMITTED)? : No EMPLOYED IN HEALTHCARE? : No FIRST COVID NASAL SWAB TEST? : Yes Symptom 2 : Nausea/Vomiting Symptom 1 : Cough DATE OF SYMPTOM ONSET? : [id number] IS THE PATIENT SYMPTOMATIC DEFINED BY THE CDC (FEVER>100, NEW WORSENING COUGH OR SHORTNESS OF BREATH, NEW LOSS OF TASTE OR SMELL, SORE THROAT, DIARRHEA, BODY ACHES/MALAISE, HEADACHE, NAUSEA/VOMITING, OR RUNNY NOSE/CONGESTION)? : Yes Cough, Exacerbation of asthma, Nasal congestion with rhinorrhea Start: Albuterol Sulfate HFA 108 (90 Base) MCG/ACT Inhalation Aerosol Solution; 2 puffs via spacer device every 4-6 hours as needed. Please use spacer device. 1 puff take 5-6 easy breaths. Rest 1 minute repeat Rx By: Mario Quintanilla; Dispense: 0 Days ; #:1 X 6.7 GM Inhaler; Refill: 1;For: Cough, Exacerbation of asthma, Nasal congestion with rhinorrhea; LETY = N; Verified Transmission to [id number]; Last Updated By: TaKaDu; 06/02/2021 12:38:41 PM Start: Doxycycline Hyclate 100 MG Oral Capsule; TAKE 1 CAPSULE TWICE DAILY UNTIL GONE Rx By: Mario Quintanilla; Dispense: 5 Days ; #:10 Capsule; Refill: 0;For: Cough, Exacerbation of asthma, Nasal congestion with rhinorrhea; LETY = N; Verified Transmission to [id number]; Last Updated By: TaKaDu; 06/02/2021 12:38:41 PM Start: Spacer for Metered Dose Inhaler; Please dispense spacer device with MDI. Please instruct patient in use of MDI with spacer device Rx By: Mario Quintanilla; Dispense: 0 Days ; #:1 Each; Refill: 0;For: Cough, Exacerbation of asthma, Nasal congestion with rhinorrhea; LETY = N; Verified Transmission to [id number]; Last Updated By: TaKaDu; 06/02/2021 12:38:38 PM Cough, Nasal congestion with rhinorrhea Start: Dexamethasone 6 MG Oral Tablet; TAKE 1 TABLET DAILY Rx By: Mario Quintanilla; Dispense: 10 Days ; #:10 Tablet; Refill: 0;For: Cough, Nasal congestion with rhinorrhea; LETY = N; Verified Transmission to [id number]; Last Updated By: TaKaDu; 06/02/2021 12:38:42 PM SocHx: Non-smoker Tobacco Use Screening; Status:Complete; Done: [id number] Perform:Not Applicable;Ordered; For:SocHx: Non-smoker; Ordered By:Shira Morgan; Patient Discussion/Summary You have a lower respiratory infection with cough and acute exacerbation of asthma Please take dexamethasone as a single dose early in the day with food as prescribed Use inhaler with spacer device 2 puffs every 4-6 hours for the next 7-10 days, decrease frequency of use as symptoms improve. Please take 5-6 deep breaths after activating inhaler from spacer chamber. Pause for approximately 1-2 minutes. Repeat activation of inhaler and 5-6 deep breaths from spacer. Increase oral fluids for the next 7-10 days Please take doxycycline as prescribed. Do not take this medication at the same meal that you are consuming dairy products or nutritional supplements as it will reduce absorption of the antibiotic. However try to take this medicine with at least an 8 ounce glass of water and some food to reduce the chances of stomach upset. I recommend using probiotics while taking the antibiotic and for a week to 10 days after you have completed this medication. Please ask the pharmacist for advice on appropriate product for this purpose. May take Tylenol 325 mg 2 tablets by mouth every 4-6 hours as needed for discomfort or fever If no improvement in 5-7 days follow-up with primary care provider If fever greater than 102 degrees Fahrenheit, chills, nausea, vomiting, increased difficulty breathing, difficulty swallowing, increased shortness of breath, worsening wheezing go to emergency department for further evaluation You have nonspecific symptoms of a viral illness. This could be compatible with Covid 19. You were tested for this virus today. We will contact you as soon as test POSITIVE results are available. If not contacted within 24 hours, may call for results after 24 hours.Until test results are known please self isolate and quarantine at home. Please increase your oral fluids for the next 7-10 days May use Tylenol 325 mg, one or 2 tablets by mouth every 4-6 hours as needed for additional pain relief Please continue physical distancing and using personal protective equipment to prevent infection of others and protect yourself from further ill (more content not included)... 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 COMPARISON: None. ACCESSION NUMBER(S): [id number] ORDERING CLINICIAN: Enzo Choi TECHNIQUE: Multiple ultrasonographic images of the thyroid gland were obtained. FINDINGS: Mildly enlarged heterogeneous thyroid gland. RIGHT LOBE: The right thyroid lobe measures 4 x 1.2 x 1.2 cm. No suspicious nodule. LEFT LOBE: The left thyroid lobe measures 3.5 x 1 x 1 cm. No suspicious nodule. ISTHMUS: The isthmus measures up to 0.3 cm in thickness. CERVICAL LYMPH NODES: No cervical lymphadenopathy. IMPRESSION: Mildly enlarged heterogeneous thyroid gland, may represent sequela of thyroiditis. No suspicious nodule. FINAL REPORT Dictated: 03/26/2019 1:24 pm Yumiko Loera MD Signed (Electronic Signature): 03/26/2019 1:24 pm Signed by: Yumiko Loera MD Technologist: HOPE Normal [facility] TSHon 12-27-2018 Thyrotropin Qn 42.38 mcIU/mL High 0.30-5.60 [facility] Comment on above: Performed By: #### 2 [id number] #### [facility] [place] [address] US Thyroidon 11-20-2018 US Thyroid Exam Date/Time: 11/20/2018 14:11 EST Reason for Exam: HYPOTHYROIDISM;Hypothyroi dism Report STUDY: US Thyroid; 11/20/2018 2:11 pm INDICATION: Hypothyroidism. COMPARISON: None. ACCESSION NUMBER(S): [id number] ORDERING CLINICIAN: Enzo Choi TECHNIQUE: Grayscale imaging, color Doppler, and spectral Doppler were utilized. FINDINGS: Right thyroid lobe measured 42 x 14 x 15 mm. Right thyroid lobe was lobulated and heterogeneous throughout. No focal measurable solid or cystic lesion. Thyroid isthmus measured 3 mm in AP thickness. Left thyroid lobe measured 38 x 13 x 13 mm. Left thyroid lobe was heterogeneous and lobulated throughout. The left lobe showed mildly heterogeneously increased vascularity on color Doppler.. No focal measurable solid or cystic lesion. IMPRESSION: No thyromegaly. Prominent diffuse heterogeneous echogenicity throughout. No focal measurable solid or cystic mass in the thyroid gland in this exam. Nonspecific asymmetric hypervascularity throughout the left thyroid lobe. FINAL REPORT Dictated: 11/20/2018 3:00 pm Cosme Lacey MD Signed (Electronic Signature): 11/20/2018 3:00 pm Signed by: Cosme Lacey MD Technologist: BENY Normal [facility] Lab Miscellaneouson 11-16-19 19 Status See Ref Lab Report Normal [facility] Comment on above: Performed By: #### 2 [id number] #### SLAVA [facility] [address] [place] [address] Lab Miscellaneouson 11-15-19 19 Test Name LYUDMILA [id number] Normal [facility] Comment on above: Performed By: #### 2 [id number] #### SLAVA Rem[facility] [address] [place] [address] Free T3on 10-30-2018 T3 free mass conc 3.1 pg/mL Normal 2.5-3.9 [facility] Comment on above: Performed By: #### 2 [id number] #### SLAVA [facility]arer[facility] [address] [place] [address] Free T4on 10-30-2018 T4 free mass conc 0.56 ng/dL Low 0.58-1.64 [facility] Comment on above: Performed By: #### 2 [id number] #### SLAVA [facility]arer[facility] [address] [place] [address] Hemoglobinon 10-30-2018 Hemoglobin mass conc (Bld) 13.3 g/dL Normal 12.0-16.0 [facility] Comment on above: Performed By: #### 2 [id number] #### SLAVA [facility]arer[facility] [address] [place] [address] TSHon 10-30-2018 Thyrotropin Qn 10.33 mcIU/mL High 0.30-5.60 [facility] Comment on above: Performed By: #### 2 782589 #### SLAVA [facility] [address] [place] [address] UA Completeon 10-30-2018 Color Nom (U) Yellow Normal Yellow [facility] Comment on above: Performed By: #### 2 [id number] #### SLAVA [facility] [address] [place] [address] Glucose mass conc (U) Negative Normal Negative [facility] Comment on above: Performed By: #### 2 [id number] #### SLAVA Rem[facility] [address] [place] [address] Ketones Ql (U) Negative Normal Negative [facility] Comment on above: Performed By: #### 2 381288 #### SLAVA Rem[facility] [address] [place] [address] RBC #/vol (U) 0-3 Normal 0-3 [facility] Comment on above: Performed By: #### 2 613522 #### SLAVA Rem[facility] [address] [place] [address] UA Blood Negative Normal Negative [facility] Comment on above: Performed By: #### 2 361574 #### SLAVA Rem[facility] [address] [place] [address] UA CA Ox Crystal 0-5 Abnormal None [facility] Comment on above: Performed By: #### 2 847224 #### SLAVA Rem[facility] [address] [place] [address] UA Clarity Clear Normal Clear [facility] Comment on above: Performed By: #### 2 470234 #### SLAVA [facility] [address] [place] [address] UA Leuk Est Negative Normal Negative [facility] Comment on above: Performed By: #### 2 653739 #### SLAVA [facility] [address] [place] [id number] UA Mucous Trace Abnormal Trace [facility] Comment on above: Performed By: #### 2 636731 #### SLAVA [facility] [address] [place] [address] UA Nitrite Negative Normal Negative [facility] Comment on above: Performed By: #### 2 502097 #### SLAVA [facility] [address] [place] [address] UA pH 5.0 Normal 4.6-8.0 [facility] Comment on above: Performed By: #### 2 739841 #### SLAVA [facility] [address] [place] [address] UA Protein Negative Normal Negative [facility] Comment on above: Performed By: #### 2 [id number] #### SLAVA [facility] [address] [place] [address] UA Spec Grav 1.028 Normal 1.003-1.030 [facility] Comment on above: Performed By: #### 2 577142 #### SLAVA [facility] [address] [place] [address] UA Squam Epithelial 0-5 Normal 0-5 [facility] Comment on above: Performed By: #### 2 031354 #### SLAVA [facility] [address] [place] [address] UA Urobilinogen 2.0 mg/dL Abnormal [facility] Comment on above: Result Comment: Due to a manufacturing issue, low positive urobilinogen results may be fasely positive. Correlate with urine bilirubin and additional clinical/laboratory findings to assess the risk of hemolytic anemia or liver disease. If clinically indicated, repeat testing with an alternate method is available by contacting the laboratory within 24 hours. Performed By: #### 2 [id number] #### SLAVA ShearerHemo [facility] [place] [address] UA WBC 0-5 Normal 0-5 [facility] Comment on above: Performed By: #### 2 750656 #### SLAVA [facility]arer[facility] [address] [place] [address] Urobilinogen Qn (U) Negative Normal Negative [facility] Comment on above: Performed By: #### 2 [id number] #### SLAVA [employer] [address] [place] [address] Auto Diffon 09-20-2018 Basophils #/vol (Bld) 0.1 E3/mcL Normal 0.0-0.2 [facility] Comment on above: Order Comment: Order Added by Discern Expert. Performed By: #### 2 [id number] #### SLAVA Shearer[facility] [address] [place], [place] [address] Basophils/100 WBC (Bld) 1.1 % Normal 0.0-2.0 [facility] Comment on above: Order Comment: Order Added by Discern Expert. Performed By: #### 2 738416 #### SLAVA ShearerHemo [facility] [place] [address] Eos Absolute 0.0 E3/mcL Normal 0.0-0.7 [facility] Comment on above: Order Comment: Order Added by Discern Expert. Performed By: #### 2 125873 #### SLAVA Rem[facility] [address] [place] [address] Eosinophils/100 WBC (Bld) 0.6 % Normal 0.0-11.0 [facility] Comment on above: Order Comment: Order Added by Discern Expert. Performed By: #### 2 474286 #### SLAVA Rem[facility] [address] [place] [address] Lymphocytes #/vol (Bld) 1.0 E3/mcL Low 1.2-3.4 [facility] Comment on above: Order Comment: Order Added by Discern Expert. Performed By: #### 2 791790 #### SLAVA Rem[facility] [address] [place] [address] Lymphocytes/100 WBC (Bld) 19.6 % Low 20.0-55.0 [facility] Comment on above: Order Comment: Order Added by Discern Expert. Performed By: #### 2 748235 #### SLAVA Rem[facility] [address] [place] [address] [place] Absolute 0.4 E3/mcL Normal 0.0-0.7 [facility] Comment on above: Order Comment: Order Added by Discern Expert. Performed By: #### 2 679041 #### SLAVA [facility]arer[facility] [address] [place] [address] Monocytes/100 WBC (Bld) 7.6 % Normal 0.0-10.0 [facility] Comment on above: Order Comment: Order Added by Discern Expert. Performed By: #### 2 946581 #### SLAVA Rem[facility] [address] [place] [address] Neutro Absolute 3.8 E3/mcL Normal 1.4-6.5 [facility] Comment on above: Order Comment: Order Added by Discern Expert. Performed By: #### 2 [id number] #### SLAVA Rem[facility] [address] [place] [address] Neutro Auto 71.1 % Normal 37.0-75.0 [facility] Comment on above: Order Comment: Order Added by Discern Expert. Performed By: #### 2 [id number] #### SLAVA Rem[facility] [address] [place] [address] CBC w/ Auto Diffon 8 Erythrocyte distribution width Ratio (RBC) 14.7 % High 11.5-14.5 [facility] Comment on above: Performed By: #### 2 140185 #### SLAVA ShearerHemo [facility] [place] [address] Hematocrit Volume Fraction (Bld) 40.5 % Normal 36.0-48.0 [facility] Comment on above: Performed By: #### 2 542660 #### SLAVA Shearer[facility] [address] [place], [place] [address] Hemoglobin mass conc (Bld) 12.9 g/dL Normal 12.0-16.0 [facility] Comment on above: Performed By: #### 2 525511 #### SLAVA Shearer[facility] [address] [place], [place] [address] MCH Entitic mass (RBC) 30.0 pg Normal 27.0-31.0 [facility] Comment on above: Performed By: #### 2 791189 #### SLAVA Shearer[facility]emo [address] [place], [place] [address] MCHC mass conc (RBC) 31.9 g/dL Low 33.0-37.0 [facility] Comment on above: Performed By: #### 2 237666 #### SLAVA ShearerHemo [address] [place], [place] [address] MCV Entitic volume (RBC) 94.2 fL Normal 78.0-100.0 [facility] Comment on above: Performed By: #### 2 625650 #### SLAVA ShearerHemo [facility] [place] [address] Platelet mean volume Entitic volume (Bld) 9.1 fL Normal 7.4-11.0 [facility] Comment on above: Performed By: #### 2 562436 #### SLAVA Rem[facility] [address] [place] [address] Platelets #/vol (Bld) 374 E3/mcL Normal 130-400 [facility] Comment on above: Performed By: #### 2 235428 #### SLAVAMynor ShearerHemo [address] [place] [address] RBC #/vol (Bld) 4.30 E6/mcL Normal 3.90-5.40 [facility] Comment on above: Performed By: #### 2 284990 #### SLAVA Shearer[facility] [address] [place] [address] WBC #/vol (Bld) 5.4 E3/mcL Normal 3.6-11.0 [facility] Comment on above: Performed By: #### 2 425226 #### SLAVA Shearer[facility] [address] [place] [address] CMPon 09-20-2018 Albumin mass conc 4.4 g/dL Normal 3.4-5.0 [facility] Comment on above: Performed By: #### 2 934627 #### SLAVAMynor [facility] [address] [place] [address] Albumin/Globulin mass ratio 1.9 {ratio} Normal 1.1-1.9 [facility] Comment on above: Performed By: #### 2 661305 #### SLAVAMynor [facility] [address] [place] [address] Alk Phos 70 Int._Unit/L Normal 33-110 [facility] Comment on above: Performed By: #### 2 671465 #### SLAVA [facility] [address] [place] [address] ALT enzyme act/vol 19 Int._Unit/L Normal 7-45 [facility] Comment on above: Performed By: #### 2 521869 #### SLAVA [employer] [address] [place] [address] Anion gap molar conc 11 mmol/L Normal 10-20 [facility] Comment on above: Performed By: #### 2 892612 #### SLAVA [employer] [address] [place] [address] AST enzyme act/vol 18 Int._Unit/L Normal 9-39 [facility] Comment on above: Performed By: #### 2 490629 #### SLAVA [facility] [address] [place] [address] Bili Total 0.45 mg/dL Normal 0.00-1.20 [facility] Comment on above: Performed By: #### 2 121229 #### SLAVA [facility] [address] [place] [address] Calcium mass conc 9.7 mg/dL Normal 8.6-10.3 [facility] Comment on above: Performed By: #### 2 649505 #### SLAVA [employer] [address] [place] [address] Chloride molar conc 106 mmol/L Normal 98-107 [facility] Comment on above: Performed By: #### 2 909551 #### SLAVA [employer] [address] [place] [address] CO2 molar conc 28.0 mmol/L Normal 21.0-32.0 [facility] Comment on above: Performed By: #### 2 392072 #### SLAVA [employer] [address] [place] [address] Creatinine mass conc 0.9 mg/dL Normal 0.5-1.1 [facility] Comment on above: Performed By: #### 2 868824 #### SLAVA [facility] [address] [place] [address] Globulin mass conc (S) 2.0 g/dL Normal 2.0-4.0 [facility] Comment on above: Performed By: #### 2 549405 #### SLAVA [employer] [address] [place] [address] Glucose mass conc 71 mg/dL Normal 70-99 [facility] Comment on above: Performed By: #### 2 180684 #### SLAVA [employer] [address] [place] [address] Potassium molar conc 4.4 mmol/L Normal 3.5-5.3 [facility] Comment on above: Performed By: #### 2 815037 #### SLAVA [facility] [address] [place] [address] Protein mass conc 6.7 g/dL Normal 6.4-8.2 [facility] Comment on above: Performed By: #### 2 089596 #### SLAVA [employer] [address] [place] [address] Sodium molar conc 140 mmol/L Normal 136-145 [facility] Comment on above: Performed By: #### 2 425017 #### SLAVA [employer] [address] [place] [address] Urea nitrogen mass conc 14 mg/dL Normal 6-23 [facility] Comment on above: Performed By: #### 2 824232 #### SLAVA [employer] [facility] [place] [address] Urea nitrogen/Creatinine mass ratio 15.6 ratio Normal 5.4-30.0 [facility] Comment on above: Performed By: #### 2 748183 #### SLAVA [employer] [address] [place], [place] [address] Ferritinon 09-20-2018 Ferritin mass conc 74.0 ng/mL Normal 8.0-150.0 [facility] Comment on above: Performed By: #### 2 479355 #### SLAVA Rem[facility] [address] [place] [address] Folateon 09-20-2018 Folate Lvl 7.60 ng/mL Normal >=5.00 [facility] Comment on above: Result Comment: The WHO Technical Consultation on folate and vitamin B12 deficiencies has determined that deficient folate concentrations are considered to be less than 4ng/ml. Performed By: #### 2 [id number] #### SLAVA [employer] [address] [place] [address] Ironon 09-20-2018 Iron mass conc 87 microgram/dL Normal 35-150 [facility] Comment on above: Performed By: #### 2 779400 #### SLAVA [employer] [address] [place] [address] Retic Counton 09-20-2018 Reticulocyte 0.8 % Normal 0.5-1.5 [facility] Comment on above: Performed By: #### 2 175313 #### SLAVA Rem[facility] [address] [place], [place] [address] TIBC Calculatedon 09-20-2018 TIBC 505 microgram/dL Normal >=250 [facility] Comment on above: Performed By: #### 1 [id number] #### SLAVA [employer] [address] [place], [place] [address] Transferrin mass conc 361 mg/dL High 200-360 [facility] Comment on above: Performed By: #### 1 [id number] #### SLAVA [employer] [address] [place] [address] TSHon 09-20-2018 Thyrotropin Qn 6.23 mcIU/mL High 0.30-5.60 [facility] Comment on above: Performed By: #### 2 [id number] #### SLAVA [employer] [facility] [place] [address] Vit B12on 09-20-2018 Cobalamin (Vitamin B12) mass conc 690 pg/mL Normal 180-914 [facility] Comment on above: Performed By: #### 2 553562 #### SLAVA [employer] [address] [place] [address] eGFRon 09-20-2018 GFR/1.73 sq M predicted among non-blacks MDRD vol rate/area (S/P/Bld) mL/min/{1.73_m2} Normal [facility] Comment on above: Order Comment: Order added by Discern Expert. Performed By: #### 1 [id number] #### SLAVA [employer] [facility] [place] [address] MRI BRAIN W/WO CONTRASTon MRI BRAIN W/WO CONTRAST Performed at [facility] APPROVED BY: Francisco Javeir Sterling MD Addendum Begins* * * * * * * * ORIGINAL REPORT * * * * * * * *EXAMINATION: MRI BRAIN W/WO CONTRAST CLINICAL HISTORY: Multiple sclerosis, follow-up exam TECHNIQUE: MRI of the brain was performed with and without contrast utilizing multiple sclerosis protocolMQ: [id number] Contrast: 10 mL gadolinium IV COMPARISON: 11/19/2011 MRI from [facility] RESULT: Acute Change: There is no evidence of restricted diffusion to suggest an acute infarct. Hemorrhage: No evidence of precontrast T1 hyperintense signal to indicate subacute intra-axial/intraparenchy mal hemorrhage Mass Lesion/ Mass Effect: No evidence of an intracranial mass or extra-axial fluid collection. No abnormal parenchymal or leptomeningeal enhancement is noted following contrast administration. No significant mass effect. Parenchyma: Advanced degree of deep white matter ovoid lesions at the periventricular and supraventricular level as well as involvement of the body and splenium portions of the corpus callosum. Compared to 2012 MRI, significant interval increase in severity of the lesions especially at the supraventricular and periventricular level. Interval decrease in size of the round enhancing lesions in the right posterior temporal lobe and right middle cerebellar peduncle. No associated contrast enhancement to indicate active demyelination, as was seen in 2012. Moderate degree of thinning body of the corpus callosum. Deep white matter lesions are also seen involving the right middle cerebellar peduncle as well as the posterior limb of the internal capsules. Ventricles: Generalized ventricular enlargement associated with atrophy, increased from 2012.Skull Base: Hypothalamic and pituitary region are grossly normal. Craniocervical junction is normal. No significant marrow replacement process. Vasculature: Major intracranial arterial structures, and dural venous sinuses show typical flow void, suggesting patency by spin echo criteria. Other: The visualized paranasal sinuses and mastoid air cells are clear. The orbits and extracranial soft tissues are unremarkable. IMPRESSION: 1. MRI findings are consistent with advanced degree of demyelinating multiple sclerotic plaques, increased significantly in severity from 2012 MRI. 2. No associated contrast enhancement to indicate active demyelination. Previously noted enhancement of the demyelinating lesions in 2012 is no longer seen 3.Generalized ventricular enlargement associated with atrophy, increased from 2012.* * * * * * * * ADDENDUM #1 * * * * * * * *Impression: MRI dated 07/16/2016 from outside center is now available for direct comparison. 1. Interval development of deep white matter lesions right side of the cerebellum as well as increase in lesions in each temporal lobe.2. Interval increase in severity of periventricular/supravent ricular deep white matter lesions.3. Interval increase in severity of the intracallosal lesion at the level the body and splenium.Addendum EndsEXAMINATION: MRI BRAIN W/WO CONTRAST CLINICAL HISTORY: Multiple sclerosis, follow-up exam TECHNIQUE: MRI of the brain was performed with and without contrast utilizing multiple sclerosis protocolMQ: [id number] Contrast: 10 mL gadolinium IV COMPARISON: 11/19/2011 MRI from [facility] RESULT: Acute Change: There is no evidence of restricted diffusion to suggest an acute infarct. Hemorrhage: No evidence of precontrast T1 hyperintense signal to indicate subacute intra-axial/intraparenchy mal hemorrhage Mass Lesion/ Mass Effect: No evidence of an intracranial mass or extra-axial fluid collection. No abnormal parenchymal or leptomeningeal enhancement is noted following contrast administration. No significant mass effect. Parenchyma: Advanced degree of deep white matter ovoid lesions at the periventricular and supraventricular level as well as involvement of the body and splenium portions of the corpus callosum. Compared to 2012 MRI, significant interval increase in severity of the lesions especially at the supraventricular and periventricular level. Interval decrease in size of the round enhancing lesions in the right posterior temporal lobe and right middle cerebellar peduncle. No associated contrast enhancement to indicate active demyelination, as was seen in 2012. Moderate degree of thinning body of the corpus callosum. Deep white matter lesions are also seen involving the right middle cerebellar peduncle as well as the posterior limb of the internal capsules. Ventricles: Generalized ventricular enlargement associated with atrophy, increased from 2012.Skull Base: Hypothalamic and pituitary region are grossly normal. Craniocervical junction is normal. No significant marrow replacement process. Vasculature: Major intracranial arterial structures, and dural venous sinuses show typical flow void, suggesting patency by spin echo criteria. Other: The visualized paranasal sinuses and mastoid air cells are clear. The orbits and extracranial soft tissues are unremarkable. IMPRESSION: 1. MRI findings are consistent with advanced degree of demyelinating multiple sclerotic plaques, increased significantly in severity from 2012 MRI. 2. No associated contrast enhancement to indicate active demyelination. Previously noted enhancement of the demyelinating lesions in 2012 is no longer seen 3.Generalized ventricular enlargement associated with atrophy, increased from 2012. Normal [facility] PROGRESSon 02-27-2018 PROGRESS HNO ID: [id number] thor: Hayden Rivera () Elisa: (none)Author Type: PhysicianType: Progress NotesFiled: 02/27/2018 8:49 AMNote Text:Multiple sclerosis (hcc)Blurred vision, left eyeSensation of foreign body in eye (primary encounter diagnosis)I can't explain her FB sensation Left eye. 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 I have seen andexamined this patient.I have discussed the case and the management of this patient's care withthe Resident/Fellow, if applicable. I also have reviewed and agree withthe assessment and plan as stated above and agree with all of its relevantcomponents.Tom Bishop DO February 27, 2018 8:47 AM Normal [facility] Vital Signs Date Time Vital Sign Value Performing Clinician Facility 03-31-2025 17:38-0400 Body height 162.56 cm Christopher Bustos NP-C Work Phone: [facility] 03-31-2025 17:38-0400 Body mass index (BMI) [Ratio] 20.5 kg/m2 Christopher Bustos PRODUCT SUPPORT MANAGER-C Work Phone: [facility] 03-31-2025 17:38-0400 Body temperature 98.1 [degF] Christopher Bustos PRODUCT SUPPORT MANAGER-C Work Phone: [facility] 03-31-2025 17:38-0400 Body weight 54.43 kg Christopher Bustos PRODUCT SUPPORT MANAGER-C Work Phone: [facility] 03-31-2025 17:38-0400 Diastolic blood pressure 70 mm[Hg] Christopher Bustos PRODUCT SUPPORT MANAGER-C Work Phone: [facility] 03-31-2025 17:38-0400 Heart rate 74 /min Christopher Bustos PRODUCT SUPPORT MANAGER-C Work Phone: [facility] 03-31-2025 17:38-0400 Respiratory rate 18 /min Christopher Bustos PRODUCT SUPPORT MANAGER-C Work Phone: [facility] 03-31-2025 17:38-0400 SaO2% (BldA) [Mass fraction] 97 % Christopher Bustos PRODUCT SUPPORT MANAGER-C Work Phone: [facility] 03-31-2025 17:38-0400 Systolic blood pressure 115 mm[Hg] Christopher Bustos PRODUCT SUPPORT MANAGER-C Work Phone: [facility] 02-10-2025 15:45-0400 Body height 162.56 cm Christopher Bustos PRODUCT SUPPORT MANAGER-C Work Phone: [facility] 02-10-2025 15:45-0400 Body mass index (BMI) [Ratio] 22.1 kg/m2 Christopher Bustos PRODUCT SUPPORT MANAGER-C Work Phone: [facility] 02-10-2025 15:45-0400 Body temperature 97 [degF] Christopher Bustos PRODUCT SUPPORT MANAGER-C Work Phone: [facility] 02-10-2025 15:45-0400 Body weight 58.51 kg Christophermynor Bustos PRODUCT SUPPORT MANAGER-C Work Phone: [facility] 02-10-2025 15:45-0400 Diastolic blood pressure 90 mm[Hg] Christophermynor Bustos PRODUCT SUPPORT MANAGER-C Work Phone: [facility] 02-10-2025 15:45-0400 Heart rate 56 /min Christophermynor QuinteroBustos PRODUCT SUPPORT MANAGER-C Work Phone: [facility] 02-10-2025 15:45-0400 Respiratory rate 18 /min Christophermynor Bustos PRODUCT SUPPORT MANAGER-C Work Phone: [facility] 02-10-2025 15:45-0400 SaO2% (BldA) [Mass fraction] 97 % Christopher Bustos PRODUCT SUPPORT MANAGER-C Work Phone: [facility] 02-10-2025 15:45-0400 Systolic blood pressure 144 mm[Hg] Christophermynor QuinteroBustos PRODUCT SUPPORT MANAGER-C Work Phone: [facility] 06-02-2021 11:55-0400 Body height 168.91 cm Margaret L Rice Work Phone: [facility] Work Phone: 06-02-2021 11:55-0400 Body mass index (BMI) [Ratio] 21.28 kg/m2 Margaret L Rice Work Phone: [facility] Work Phone: 06-02-2021 11:55-0400 Body surface area Derived from formula 1.7 m2 Margaret L Rice Work Phone: [facility] Work Phone: 06-02-2021 11:55-0400 Body temperature 97.3 [degF] Margaret L Rice Work Phone: [facility] Work Phone: 06-02-2021 11:55-0400 Body weight 60.7 kg Margaret L Rice Work Phone: [facility] Work Phone: 06-02-2021 11:55-0400 Diastolic blood pressure 50 mm[Hg] Margaret L Rice Work Phone: [facility] Work Phone: 06-02-2021 11:55-0400 Heart rate 63 /min Margaret L Rice Work Phone: [facility] Work Phone: 06-02-2021 11:55-0400 Respiratory rate 18 /min Margaret L Rice Work Phone: [facility] Work Phone: 06-02-2021 11:55-0400 SaO2% (BldA) [Mass fraction] 97 % Margaret L Rice Work Phone: [facility] Work Phone: 06-02-2021 11:55-0400 Systolic blood pressure 126 mm[Hg] Margaret L Rice Work Phone: [facility] Work Phone: 06-02-2021 11:55-0400 0 1 Margaret L Rice Work Phone: [facility] Work Phone: Comment on above: [employer] Encounters Encounter Date Encounter Type Care Provider Facility Start: 04-24-2025 ambulatory CHRISTOPHER BUSTOS Facilit y:[facility] Start: 03-31-2025 End: 03-31-2025 ambulatory Christopher Bustos PRODUCT SUPPORT MANAGER-C Work Phone: [facility] Work Phone: Start: 03-08-2025 ambulatory DELMY JOSUE Facility:[facility] Start: 03-08-2025 End: 03-08-2025 Subsequent hospital visit by physician [facility] (1.5t) [facility] Comment on above: Multiple sclerosis [ G35] Start: 02-13-2025 Encounter for genera l adult medical examination without abnormal findings Christopher Bustos NP [facility] Start: 02-10-2025 End: 02-10-2025 ambulatory Christopher Layo PRODUCT SUPPORT MANAGER-C Work Phone: [facility] Work Phone: Start: 02-10-2025 End: 02-10-2025 Patient encounter procedure Christopher Bustos PRODUCT SUPPORT MANAGER-C -Laboratory, Specimen Work Phone: Start: 02-10-2025 Patient encounter status Christopher Layo PRODUCT SUPPORT MANAGER-C Work Phone: [facility] Start: 02-10-2025 End: 02-10-2025 ambulatory Christopher Bustos NP Facility:[facility] Start: 06-02-2021 Office outpatient ne w 30 minutes Margaret Lucas Work Phone: [facility] Work Phone: Start: 02-27-2018 End: 02-28-2018 Ambulatory HAYDEN LOPEZ [facility] Plan of Treatment Date Care Activity Detail Author Start: 06-09-2025 Influenza vaccination Influenza Vaccine (Season Ended) [facility] Start: 02-10-2025 Vitamin D, 1,25-dihydroxy measurement [facility] Start: 2024 Pneumococcal Vaccine: 50+ (1 of 1 - PCV) Pneumococcal Vaccine: 50+ (1 of 1 - PCV) [facility] Start: 2024 Shingrix Vaccine (1 of 2) Shingrix Vaccine (1 of 2) [facility] Start: 06-09-2024 Covid-19 Vaccine ( season) Covid-19 Vaccine ( season) [facility] Start: 04-28-2024 Screening for malignant neoplasm of breast Mammogram Screening [facility] Start: 2019 Diabetes Screening Diabetes Screening [facility] Start: 2019 Lipid panel Lipid Screening [facility] Start: 2019 Screening for malignant neoplasm of colon [facility] Start: 1995 Screening for malignant neoplasm of cervix Cervical Cancer Screening [facility] Start: 1993 Hepatitis B Vaccine (1 of 3 - 19+ 3-dose series) Hepatitis B Vaccine (1 of 3 - 19+ 3-dose series) [facility] Start: 1993 Urine microalbumin profile DTaP,Tdap,Td Vaccine (1 - Tdap) [facility] Start: 1992 Anxiety Screening Anxiety Screening [facility] Start: 1992 Depression Screening Depression Screening [facility] Start: 1992 Hepatitis C screening Hepatitis C Screening [facility] Start: 1992 HIV screening HIV Screening [facility] Payers Date Payer Category Payer Self-pay 2024 Medicare (Managed Care) [facility] H[facility] [id number] 2024 Unknown [id number] 1975 Unknown [id number] Unknown ANTHEM Private Health Insurance Unknown [facility] ADV [id number] Unknown [id number] Social History Date Type Detail Facility Start: 04-12-2018 End: 02-20-2025 Non-smoker Non-smoker [facility] Work Phone: Start: 1975 Sex Assigned At Female [facility] Start: 06-20-2016 [facility] Start: 06-20-2016 Tobacco use and exposure Smokeless tobacco non-user [facility] Start: 02-27-2018 Alcoholic beverage intake Current non-drinker of alcohol (finding) [facility] Start: 04-12-2018 End: 02-20-2025 Tobacco use panel [facility] National Score (1-10 0), lower number is lower risk 53 [facility] Start: 1975 Sex assigned at Not on file [facility] Progress note 03-31-2025 Note Date & Type Note Facility 03-31-2025 Progress note Note Date/Time March 31, 2025 5:50pm [facility] [address] [place] [address] OFFICE VISIT Date of Service: 03/31/25 MR#: [id number] Acct: [id number] Name: MARINA BECKFORD Rep #: [id number] : 1975 Provider: LESLI Bustos Age/Sex: 49/F Location: [facility] Status: Signed Intake Vital Signs 02/10/25 15:45 03/31/25 17:38 Height 5 ft 4 in 5 ft 4 in Weight: 120 lb BMI 20.5 BP 115/70 Blood Pressure Location Rt brachial Position Sitting Respiration 18 Temp 98.1 F Temp Source Surface Pulse 74 Pulse Source Doppler Pulse Oximetry (%) 97 Oxygen Delivery Method room air Intake Visit Reasons: F/up W/Thyroid Accompanied by: Is patient in pain?: No Feel stressed/tense/nervous/anxious/difficulty sleeping: not at all Allergies No Known Allergies Allergy (Verified 02/11/25 10:42) Medications ?Medication ?Instructions ?Recorded ?Confirmed ?Type ascorbate calcium (vitamin C) 500 500 mg PO BID 03/31/25 History mg tablet cholecalciferol (vitamin D3) 125 125 mcg PO QDAY 02/1103/31/25 History mcg (5,000 unit) capsule gabapentin 300 mg capsule 300 mg PO QHS 02/11/2503/31 History magnesium 250 mg tablet 250 mg PO QDAY 02/11/25 06/12/31 History mecobalamin (vitamin B12) 1,000 1,000 mcg sublingual Q DAY 02/11/25 03/31/25 History mcg disintegrating tablet,sublingual methylphenidate HCl 54 mg 54 mg PO QAM 02/11/25 History tablet,extended release 24 hr (Concerta) ocrelizumab 920 23 ml subcut [id number] 03/31/25 History qc-vybxsmqgnbefc-oosh 23,000 unit/23 mL subcut soln (Ocrevus Zunovo) Held on 03/31/25. Instructions: Home Medication placed on hold at Doctor's office zinc acetate 50 mg (zinc) capsule 50 mg PO QDAY 03/31/25 History (Galzin) levothyroxine 88 mcg tablet 88 mcg PO QDAY #30 tabs 03/31/25 Rx (Levoxyl) Is last menstrual period known: No Post menopausal: Yes Patient : No PFSH Medical History (Updated 02/11/25 @ 10:56 by Christopher Bustos NP, PRODUCT SUPPORT MANAGER-C) Raymundo's thyroiditis Multiple sclerosis HPI HPI HPI HPI: MARINA BECKFORD, is a 49 F who presents to the office today for her Raymundo's thyroiditis. Apparently she has a thyroid issue and forgot to tell me the last time she was here her last doctor refused to give her a refill because she was not taking care of her anymore and she forgot to tell me that she was on thyroidmedications at 88 mcg. So I told her she will start feeling better when she gets back on her med and then we will repeat lab in a month recheck. I also gave her phone numbers to the [facility] which is just cells and multiple sclerosis and I also gave her Dr. Quiñones s number for a DRY GOODS INSPECTOR. Since she gave us the wrong phone numbers I finally mailed her her labs and she just opened them up yesterday and found that she needed to be on her thyroid med ROS Const Constitutional: No anorexia, body ache, chills, excessive sweating, fatigue, fever(s), frequent falls, headache(s), decreased energy, malaise, night sweats, snoring, weakness, weight change, sleep problems, abnormal sleep pattern, changein appetite or other Eyes Eyes: No blurry vision, change in vision, double vision, discharge, dry eyes, bulging eyes, floaters, visual disturbances, eye pain, Light sensitivity, spots in vision, tunnel vision or other ENT ENT: No abnormal hearing, ear or mastoid pain, ear discharge, ear pressure, hearing loss, tinnitus, dizziness/vertigo, balance problems, nosebleed/epistaxis, nasal congestion, nasal obstruction, nose pain, sinus pressure, sinus pain, nasal discharge, post nasal drip, headache(s), facial pain, dental pain, dry mouth, difficulty swallowing, bad breath, hoarseness, lipswelling, mouth lesions, mouth pain, neck pain, sore throat, tongue swelling, throat swelling or other Resp Respiratory: No cough, change in phlegm color, chest congestion, excessive phlegm production, hemoptysis, pain on inspiration, shortness of breath, pain withcough, snoring, stridor, wheezing or other Cardio Cardiology: No chest pain at rest, chest pain with exertion, leg pain with exertion, excessive sweating, shortness of breath, dyspnea on exertion, generalized swelling, irregular heart rhythm, lightheadedness, orthopnea, radiating jaw, neck or arm pain, fast heart rate, slow heart rate, palpitations or other Gastro GI: No abdominal pain, No belching, No bloating, No change in bowel habits, No change in stool character, No coffee ground emesis, No constipation, No cramping, No diarrhea, No heartburn, No Difficulty Swallowing, No feeling full early, No excessive flatus, No incontinent of stools, No Vomiting blood/hematemesis, No Blood in stool, No loose stools, No Black,tarry stools, Nonausea/dyspepsia, No pain with swallowing, No vomiting, No rectal pain and No other Genitourinary: No difficulty urinating, burning urination, painful urination, urinary frequency, urinary urgency or blood in urine Musc Musculoskeletal: No abnormal gait, joint pain, back pain, deformity, joint swelling, limited range of motion, loss of height, muscle cramps, muscle weakness, decreased muscle mass, myalgias, neck pain, numbness, radiating pain into limb, stiffness, tingling, restless legs, leg pain with exertion or other Skin Skin: No acne, hair loss in leg, change in hair, nail changes, boil, change in skin color, dry skin, redness, excessive hair growth, yellowing of the eye, lesions, itchy eyes, rash, skin pain, skin ulcer, sores, skin swelling, wounds or other Breast Breast: No other Neuro Neurology: No abnormal gait, abnormal hearing, abnormal movements, abnormal speech, behavioral changes, confusion, unsteady gait/balance, dizziness, weakness, frequent falls, headache(s), lack of coordination, loss of vision, memory loss, numbness, tingling, visual disturbances, restless legs, fainting, tremor(s) or other Psych Psychiatric: No abnormal sleep pattern, No lack of enjoyment, No anxiety, No behavioral changes, No change in appetite, No confusion, No depression, No difficulty concentrating, No hopelessness, No irritability, No memory loss, No mood swings, No panic attacks, No paranoia, No Thoughts of harming yourself/Others, No hallucinations and No other Endo Endo: No excessive sweating, No fatigue and No other Aller/Imm Allergy/Immunologic: No itchy eyes, lip swelling, throat swelling, tongue swelling or wheezing Exam Const Constitutional: Yes cooperative and Yes healthy appearing Orientation: Yes alert, awake and oriented x3 HENOR Head: Yes normocephalic Ear: Yes hearing grossly normal bilaterally Face: Yes normal facial exam Nose: Yes external nose normal Mouth: Yes oral mucosae normal Neck Neck: normal visual inspection Thyroid: thyroid normal Eyes General: Yes appearance normal, both eyes and all related structures Chest Chest palpation & inspection: Yes normal inspection of the chest Resp Effort & Inspection: Yes normal respiratory effort and able to speak in completesentences; No stridor Auscultation: Yes clear to auscultation bilaterally Cardio Palpitation: Yes normal PMI Rate: Yes regular rate Rhythm: Yes regular rhythm GI Inspection: Yes normal to inspection Auscultation: Yes normal bowel sounds Palpation: Yes soft and no hepatosplenomegaly Musc Cervical Spine: Yes cervical ROM normal Thoracic/Lumbar Spine: Yes thoracic and lumbar spine normal to inspection Skin General: no rashes or lesions noted Lesions: Yes no lesions Extrem General: Yes normal to inspection Neuro General: Yes alert and oriented x3 Speech: Yes speech normal Gait: Yes normal gait Motor: No weakness Psych Appearance: Positive grossly normal Mood: Positive congruent mood Affect: Positive normal affect Speech and Movement: Yes speech and movement normal Attitude: Yes cooperative Thought Process: Yes normal Thought Content: Yes normal Judgment: Yes judgment good Coding Level of Care Code Off vis,est,level 4 Diagnoses 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 Also call the MS clinic andtry to make an appointment with them and discuss your issues with them. And also make an appointment with Dr. Mejía for a DRY GOODS INSPECTOR appointment. 03/31/25 1750 <Electronically signed by Christopher Espinoza on PRODUCT SUPPORT MANAGER PRODUCT SUPPORT MANAGER-C> Date _ Christopher Bustos PRODUCT SUPPORT MANAGER PRODUCT SUPPORT MANAGER-C CC: ~ [facility] Work Phone: Progress note 03-31-2025 Note Date & Type Note Facility 03-31-2025 Progress note [facility] History of Present illness Narrative 03-08-2025 Italia Valera RT(R) - 03/08/2025 11:00 AM EDT Note Date & Type Note Facility 03-08-2025 History of Presen t illness Narrative Radiology Service Progress Note DATE OF SERVICE: March 08, 2025 TIME: 12:05 PM PATIENT IDENTITY VERIFICATION COMPLETED USING TWO (2) STANDARD IDENTIFIERS: Name and Date of confirmed by patient verbally. FALL SCREENING: Has the patient had 2 falls in the last year or 1 fall with injury or currently using an Ambulatory Assistive Device (Walker, Cane, Wheelchair, Crutches, etc.)? No PATIENT GENDER DATA: Assigned female at . status: : No status: NO. PATIENT RELEVANT IMPLANT DATA REVIEWED: Not Applicable PATIENT PRESENTS WITH AN IMPLANTABLE OR ATTACHED BEATER LEAD: No ALLERGIES: Reviewed and unchanged CONTRAST ALLERGY: NO. EXAM: MRI - CONTRAST TYPE: GROUP I OR GROUP III RISK FACTORS: N/A CREATININE: Creatinine Date Value Ref Range Status 11/15/2011 0.99 0.70 - 1.40 mg/dL Final 01/21/2011 0.9 0.6 - 1.2 MG/DL Final 09/02/2010 0.9 0.6 - 1.2 MG/DL Final eGFR-All Other Races Date Value Ref Range Status 11/15/2011 >60 . Final P.O.C.T. RESULTS: POC done: Yes, See Lab Tab March 08, 2025 TREATMENT: N/A PERIPHERAL IV DATA: Ambulatory: A peripheral IV was started in the Right antecubital site with a Angio cath: 22 gauge. RADIOLOGY DEPARTMENT: MR; Exam(s) Completed: Head: Routine Brain. Lavender Administered: No SIGNATURE: JUSTINE Bowers) PATIENT NAME: Marina Beckford DATE: March 08, 2025 TIME: 12:05 PM documented in this encounter [facility] Progress note 03-08-2025 Note Date & Type Note Facility 03-08-2025 Note HNO ID: [id number] Author: ITALIA VALERA RT (R) Service: ? Author Type: Cosmetic Maker Type: Progress Notes Filed: 03/08/2025 12:06 Note Text: Radiology Service Progress Note DATE OF SERVICE: March 08, 2025 TIME: 12:05 PM PATIENT IDENTITY VERIFICATION COMPLETED USING TWO (2) STANDARD IDENTIFIERS: Name and Date of confirmed by patient verbally. FALL SCREENING: Has the patient had 2 falls in the last year or 1 fall with injury or currently using an Ambulatory Assistive Device (Walker, Cane, Wheelchair, Crutches, etc.)? No PATIENT GENDER DATA: Assigned female at . status: : No status: NO. PATIENT RELEVANT IMPLANT DATA REVIEWED: Not Applicable PATIENT PRESENTS WITH AN IMPLANTABLE OR ATTACHED BEATER LEAD: No ALLERGIES: Reviewed and unchanged CONTRAST ALLERGY: NO. EXAM: MRI - CONTRAST TYPE: GROUP I OR GROUP III RISK FACTORS: N/A CREATININE: Creatinine Date Value Ref Range Status 11/15/2011 0.99 0.70 - 1.40 mg/dL Final 01/21/2011 0.9 0.6 - 1.2 MG/DL Final 09/02/2010 0.9 0.6 - 1.2 MG/DL Final eGFR-All Other Races Date Value Ref Range Status 11/15/2011 >60 . Final P.O.C.T. RESULTS: POC done: Yes, See Lab Tab March 08, 2025 TREATMENT: N/A PERIPHERAL IV DATA: Ambulatory: A peripheral IV was started in the Right antecubital site with a Angio cath: 22 gauge. RADIOLOGY DEPARTMENT: MR; Exam(s) Completed: Head: Routine Brain. Lavender Administered: No SIGNATURE: RT lEissa(R) PATIENT NAME: Marina Beckford DATE: March 08, 2025 TIME: 12:05 PM [facility] Evaluation note 02-10-2025 Note Date & Type Note Facility 02-10-2025 Evaluation note Diagnosis Onset Date Resolution Wellness examination acute February 10, 2025 3:15pm [facility] Work Phone: Evaluation note 02-10-2025 Note Date & Type Note Facility 02-10-2025 Evaluation note Diagnosis Onset Date Resolution Wellness examination acute February 10, 2025 3:15pm Raymundo's thyroiditis acute J une 2024 5:17pm Multiple sclerosis acute March 102024 5:17pm [facility] Work Phone: History of Present illness Narrative Note Date & Type Note Facility History of Present illness Narrative 45-year-old unvaccinated female presents with a weeklong history of cough and nausea she states that the cough has been largely nonproductive. She complains of nausea but denies vomiting, fever, chills. She complains of a headache. She denies ear pain she complains of rhinorrhea and nasal congestion. She states she has a sore throat with occasional odynophagia. She complains of a nonproductive cough. She denies wheezing or shortness of breath. She complains of no abdominal cramps or constipation but diarrhea. She denies increased urinary frequency or dysuria. Past medical history: Asthma, hypothyroidism, multiple sclerosis, current medications: Ocrevus, levothyroxine, allergies: No known drug allergies, seasonal. Patient is a non-smoker. She complains of no pain at this time. [facility] Work Phone: Reason for referral (narrative) Note Date & Type Note Facility Reason for referral (narrative) No reason for referral information available [facility] Work Phone: Reason for visit Narrative MRI/CT (Routine) - Closed Note Date & Type Note Facility Reason for visit Narrative Specialty Diagnoses / Procedures Referred By Juan Jose mcqueen Referred To Contact [facility] Diagnoses Multiple sclerosis G35 Multiple Sclerosis Procedures MRI BRAIN BRAIN STEM W/O W/CONTRAST MATERIAL MRI WWO NEU1 [address] [place] [address] [place] [address] Phone: tel: fax: [facility] [address] [place] [address] Phone: tel: Referral ID Status Reason Start Date Expiration Date Visits Re quested Visits Authorized [id number] Closed 01/29/2025 10/08/2025 1 1 [facility] Summary Purpose Family History No Family History Records FoundNo Family History Records FoundNo Family History Records FoundNo Family History Records FoundNo Family History Records FoundNo Family History Records FoundNo Family History Records FoundNo Family History Records FoundNo Family History Records Found Advance Directives No Advanced Directives Records FoundNo Advanced Directives Records FoundNo Advanced Directives Records FoundNo Advanced Directives Records FoundNo Advanced Directives Records FoundNo Advanced Directives Records FoundNo Advanced Directives Records FoundNo Advanced Directives Records FoundNo Advanced Directives Records Found Chief Complaint and Reason for Visit Chief Complaint Admit Date Annual wellness exam PE February 10, 2025 3: 15pm Reason for Visit Admit Date Wellness examination February 10, 2025 3:15p m Chief Complaint Admit Date Annual wellness exam PE February 10, 2025 3: 15pm F/up W/Thyroid March 31, 2025 5:17 pm Reason for Visit Admit Date Wellness examination February 10, 2025 3:15p m Raymundo's thyroiditis March 31, 2025 5:17pm Multiple sclerosis March 31, 2025 5:17 pm Additional Source Comments INFORMATION SOURCE (unrecogn ized section and content) DATE CREATED AUTHOR 03/28/2018 [facility] DATE CREATED AUTHOR AUTHOR'S ORGANIZ ATION 09/17/2018 [facility] DATE CREATED AUTHOR AUTHOR'S ORGANIZ ATION 03/27/2019 [facility] DATE CREATED AUTHOR AUTHOR'S ORGANIZ ATION 06/03/2021 [facility] DATE CREATED AUTHOR AUTHOR'S ORGANIZ ATION 06/03/2021 [employer] DATE CREATED AUTHOR AUTHOR'S ORGANIZ ATION 01/17/2022 [facility] DATE CREATED AUTHOR AUTHOR'S ORGANIZ ATION 02/16/2025 [facility] DATE CREATED AUTHOR AUTHOR'S ORGANIZ ATION 03/26/2025 [facility] DATE CREATED AUTHOR AUTHOR'S ORGANIZ ATION 04/28/2025 [facility] Care Teams (unrecognized sec tion and content) Team Status: Inactive Member Role Status Dates Christopher Bustos NP, PRODUCT SUPPORT MANAGER-C Attending Provider Active Start: February 10, 2025 End: February 10, 2025 Team Status: Inactive Member Role Status Dates Christopher Bustos NP, NP-C Attending Provider Active Start: February 10, 2025 End: February 10, 2025 Christopher Bustos NP, NP-C Referring Provider Active Start: February 10, 2025 End: February 10, 2025 Spraying Machine Operator Relationship Specialty [place] [id number] [address] PCP - General Neurology 06/20/16 Team Status: Inactive Member Role Status Dates Christopher Bustos NP PRODUCT SUPPORT MANAGER-C Attending Provider Active Start: March 31, 2025 End: March 31, 2025 Goals (unrecognized section and content) Goals may be documented in a n alternate sectionGoals may be documented in an alternate section Source Comments (unrecognize d section and content) In the event this informatio n is protected by the Federal Confidentiality of Alcohol and Drug Abuse Patient Records regulations: The Federal rules restrict any use of the information to criminally investigate or prosecute any alcohol or drug abuse patient.[facility] FOR RECORDS PERTAINING TO PATIENTS WHO ARE OR HAVE BEEN ENROLLED IN A CHEMICAL DEPENDENCY/SUBSTANCEABUSE PROGRAM, SOME INFORMATION MAY BE OMITTED. This clinical summary was aggregated from multiple sources. Caution should be exercised in using it in the provision of clinical care. This summary normalizes information from multiple sources, and as a consequence, information in this document may materially change the coding, format and clinical context of patient data. In addition, data may be omitted in some cases. CLINICAL DECISIONS SHOULD BE BASED ON THE PRIMARY CLINICAL RECORDS. [facility] [facility]. provides no warranty or guarantee of the accuracy or completeness of information in this document.
[2025-05-01 00:05] LABS: Cholesterol 189 mg/dL (<=200); Low Density Lipoprotein Calc. 95 mg/dL; Triglycerides 79 mg/dL; Very Low Density Lipoprotein 16 mg/dL (5-40); cholesterol:hdl ratio screen 2.41
== END | disposition home or self-care (01) ==
PROVIDERS: Referring Provider Nurse Practitioner; Visit Provider Nurse Practitioner
DX: E06.3 Autoimmune thyroiditis (principal); G35 Multiple sclerosis; E78.00 Pure hypercholesterolemia, unspecified
CPT/HCPCS: 80061; 84443